=== PATIENT | male | born 1990 | race Caucasian/White ===

== ENCOUNTER 2019-02-07 20:18 | Emergency (ER) | payer MEDICAID ==
[~2019-02-07] VITALS: Ht 162.6 cm; Wt 63.6 kg
[~2019-02-07 20:18] MED LIST: ACET1TAB12 PO; CYCL-1 PO
[2019-02-07 20:29] VITALS: BP 126/81
[2019-02-07] MEDS ORDERED: AMOX-580 PO (21:15)
== END 2019-02-07 21:40 | disposition home or self-care (01) ==
LOC: ER 20:19
DX: J06.9 Acute upper respiratory infection, unspecified (principal); H92.01 Otalgia, right ear; J45.909 Unspecified asthma, uncomplicated; Z79.899 Other long term (current) drug therapy
CPT/HCPCS: 99283

== ENCOUNTER 2019-06-05 10:43 | Emergency (ER) | payer MEDICAID ==
[~2019-06-05] VITALS: Ht 162.6 cm; Wt 54.0 kg
[2019-06-05 10:54] VITALS: BP 129/85
[2019-06-05] MEDS ORDERED: buprenorphine/naloxone 8mg/2mg SL tablet SL STA (12:46)
[2019-06-05] MEDS ORDERED: LORazepam 1 MG tablet PO ONE (12:50)
== END 2019-06-05 14:01 | disposition home or self-care (01) ==
LOC: ER 10:44
DX: F11.23 Opioid dependence with withdrawal (principal); F15.10 Other stimulant abuse, uncomplicated; F50.89 Other specified eating disorder; J45.909 Unspecified asthma, uncomplicated; Z68.20 Body mass index [BMI] 20.0-20.9, adult; Z79.899 Other long term (current) drug therapy
CPT/HCPCS: 99283

== ENCOUNTER 2019-06-18 21:04 | Emergency (ER) | payer MEDICAID ==
[~2019-06-18] VITALS: Ht 162.6 cm; Wt 61.0 kg
[2019-06-18] MEDS ORDERED: ondansetron/PF 4mg/2ml inj IV ONE (21:15)
[2019-06-18] MEDS ORDERED: charcoal/sorbitol 50gm/240ml suspension PO ONE (21:15)
--- NOTE | 2019-06-18 21:24 | NUR ---
contacted posion control. recommended that we monitor for drowsiness, ataxia, N\V, tremors, tachycardia or bradycardia, hypo or hypertension. Observe pt for 6 hrs. pt needs seizure precautions, regular labs with ASA, APAP, UDS - ok to give benzos for agitation.
[2019-06-18 21:53] LABS: BASOPHILS # (AUTO) 0.1 X10'3 (0-0.2); BASOPHILS % (AUTO) 0.8 % (0-1); EOSINOPHILS # (AUTO) 0.1 X10'3 (0-0.9); EOSINOPHILS % (AUTO) 1.3 % (0-6); HEMATOCRIT 42.4 % (42.0-52.0); HEMOGLOBIN 14.4 g/dl (14.0-17.9); LYMPHOCYTES # (AUTO) 3.1 X10'3 (1.1-4.8); LYMPHOCYTES % (AUTO) 44.3 % (21-51); MEAN CORPUSCULAR HEMOGLOBIN 30.1 PG (27.0-31.0); MEAN CORPUSCULAR HGB CONC 33.9 g/dL (33.0-36.5); MEAN CORPUSCULAR VOLUME 88.6 FL (78-98); MEAN PLATELET VOLUME 7.1 FL (7.4-10.4); MONOCYTES # (AUTO) 0.5 X10'3 (0-0.9); NEUTROPHILS # (AUTO) 3.3 X10'3 (1.8-7.7); NEUTROPHILS % (AUTO) 46.6 % (42-75); PLATELET COUNT 324 X10'3 (140-440); RED BLOOD COUNT 4.78 X10'6 (4.70-6.10); RED CELL DISTRIBUTION WIDTH 13.1 % (11.5-14.5)
[2019-06-18 21:59] LABS: CLARITY,URINE CLEAR (Clear); COLOR,URINE YELLOW (Yellow); GLUCOSE, URINE NEGATIVE (Neg); KETONES,URINE NEGATIVE (Neg); LEUKOCYTE ESTERASE ,URINE NEGATIVE (Neg); NITRITES, URINE NEGATIVE (Neg); OCCULT BLOOD,URINE NEGATIVE (Neg); PROTEIN,URINE NEGATIVE (Neg); UROBILINOGEN,URINE 0.2 E.U/dL (0.2-1.0)
[2019-06-18 22:09] LABS: URINE AMPHETAMINE SCREEN NEGATIVE (Neg); URINE BARBITUATE SCREEN NEGATIVE (Neg); URINE BENZODIAZEPINES SCREEN NEGATIVE (Neg); URINE CANNABINOID SCREEN POSITIVE (Neg); URINE COCAINE SCREEN NEGATIVE (Neg); URINE METHADONE SCREEN NEGATIVE (Neg); URINE OPIATE SCREEN NEGATIVE (Neg); URINE PHENCYCLIDINE SCREEN NEGATIVE (Neg)
[2019-06-18 22:10] LABS: UA COLLECTION TYPE VOIDED
[2019-06-18 22:28] LABS: ALANINE AMINOTRANSFERASE 129 U/L (12-78); ALBUMIN 3.7 G/DL (3.4-5.0); ALBUMIN/GLOBULIN RATIO 1.2 (1.1-1.5); ALKALINE PHOSPHATASE 103 IU/L (46-116); ANION GAP 8 (8-16); ASPARTATE AMINO TRANSFERASE 40 U/L (10-37); BILIRUBIN,TOTAL 0.4 MG/DL (0.1-1.0); BLOOD UREA NITROGEN 16 MG/DL (7-18); BUN/CREATININE RATIO 18.4 (5.4-32.0); CALCIUM 8.5 MG/DL (8.5-10.1); CHLORIDE 107 MMOL/L (99-107); CREATININE 0.87 MG/DL (0.60-1.10); GLUCOSE 93 MG/DL (70-104); POTASSIUM 3.6 MMOL/L (3.5-5.1); SODIUM 145 MMOL/L (135-145); TOTAL CARBON DIOXIDE 29.9 MMOL/L (24-32); TOTAL PROTEIN 6.8 G/DL (6.4-8.2); eGFR > 90 ML/MIN
[2019-06-18 22:37] LABS: ETHANOL < 0.010 GM/DL (0.0-0.010)
[2019-06-18 22:38] LABS: ACETAMINOPHEN < 2.0 UG/ML (10-30)
--- NOTE | 2019-06-18 23:10 | NUR ---
Increased BROCK level to 2 r/t 1799 written.
--- NOTE | 2019-06-18 23:11 | NUR ---
biju jurado [phone] contact.
[2019-06-19] MEDS ORDERED: PRAZ1CAP5 PO (01:38)
[2019-06-19] MEDS ORDERED: MIRT45TA83 PO (01:38)
[2019-06-19] MEDS ORDERED: BUPR1FIL3 SL (01:38)
--- NOTE | 2019-06-19 02:07 | NUR ---
Pt is awake and talking to registration.
[2019-06-19] MEDS ORDERED: nicotine 21mg patch - 24 hr TD STA (02:14)
--- NOTE | 2019-06-19 02:14 | NUR ---
He has tears in his eyes that he is on a 1798 "I didn't do it intentionally" He wants to go out for a smoke, told him he couldn't and he opted for a patch.
--- NOTE | 2019-06-19 02:38 | NUR ---
Pt being argumentative with changing into green scrubs.
--- NOTE | 2019-06-19 02:41 | NUR ---
Tech infomed me that the pt pulled out his IV when he was taking off his gown.
--- NOTE | 2019-06-19 02:51 | NUR ---
Pt in new room without incident. Pt currently calm and cooperative. [place] given.
--- NOTE | 2019-06-19 02:51 | NUR ---
pt hugged his gf good bye and walked to overflow with tech and security without incident and threw himself onto the bed with his arms crossed. Warmed blankets applied to him. The gf went home with ALL of his belongings.
[2019-06-19 05:43] VITALS: BP 109/67
--- NOTE | 2019-06-19 06:30 | NUR ---
Patient sleeping supine with arms behind his head. No distress observed. Continue to monitor.
--- NOTE | 2019-06-19 07:50 | NUR ---
Patient ambulatory to BR, steady gait. No distress observed. Continue to monitor.
[2019-06-19] MEDS ORDERED: buprenorphine/naloxone 8MG-2MG SUBlingual film SL SCH (08:00)
--- NOTE | 2019-06-19 09:09 | NUR ---
Eve BARNES with patient.
[2019-06-19] MEDS ORDERED: LAMO150T2 PO (10:13)
[2019-06-19] MEDS ORDERED: prazosin 1mg capsule PO SCH (21:00)
[2019-06-19] MEDS ORDERED: mirtazapine 15mg tablet PO SCH (21:00)
== END 2019-06-19 10:12 | disposition home or self-care (01) ==
LOC: ER 21:04
DX: T43.021A Poisoning by tetracyclic antidepressants, accidental (unintentional), initial encounter (principal); F43.10 Post-traumatic stress disorder, unspecified; F31.9 Bipolar disorder, unspecified; F12.90 Cannabis use, unspecified, uncomplicated; J45.909 Unspecified asthma, uncomplicated; F15.90 Other stimulant use, unspecified, uncomplicated; F11.90 Opioid use, unspecified, uncomplicated; Z79.899 Other long term (current) drug therapy; X83.8XXA Intentional self-harm by other specified means, initial encounter; Y93.89 Activity, other specified; Y92.89 Other specified places as the place of occurrence of the external cause; Y99.8 Other external cause status
CPT/HCPCS: 36415; 80053; 80305; 80320; 80329; 81003; 84443; 85025; 93005; 99284; J2405

== ENCOUNTER 2021-12-23 20:23 | Inpatient (IN) | payer MEDICAID ==
[~2021-12-23] VITALS: Ht 162.6 cm; Wt 69.0 kg
[~2021-12-23 20:23] MED LIST changes: -ACET1TAB12 PO; +BUPR1FIL3 SL; -CYCL-1 PO; +MIRT45TA83 PO; +PRAZ1CAP5 PO
[2021-12-23 20:47] LABS: BASOPHILS # (AUTO) 0.1 X10'3 (0-0.2); BASOPHILS % (AUTO) 0.9 % (0-1); EOSINOPHILS % (AUTO) 0.1 % (0-6); HEMOGLOBIN 14.5 g/dl (14.0-17.9); LYMPHOCYTES # (AUTO) 2.2 X10'3 (1.1-4.8); LYMPHOCYTES % (AUTO) 19.5 % (21-51); MEAN CORPUSCULAR HEMOGLOBIN 29.9 PG (27.0-31.0); MEAN CORPUSCULAR HGB CONC 34.4 g/dL (33.0-36.5); MEAN CORPUSCULAR VOLUME 86.8 FL (78-98); MEAN PLATELET VOLUME 7.5 FL (7.4-10.4); MONOCYTES # (AUTO) 0.6 X10'3 (0-0.9); MONOCYTES % (AUTO) 5.8 % (2-12); NEUTROPHILS # (AUTO) 8.3 X10'3 (1.8-7.7); NEUTROPHILS % (AUTO) 73.7 % (42-75); PLATELET COUNT 420 X10'3 (140-440); RED BLOOD COUNT 4.84 X10'6 (4.70-6.10); RED CELL DISTRIBUTION WIDTH 12.5 % (11.5-14.5); WHITE BLOOD COUNT 11.2 X10'3 (4.5-11.0)
[2021-12-23] MEDS ORDERED: diphenhydrAMINE 50 mg/ml inj IM ONE ×2 (20:50→22:40)
[2021-12-23] MEDS ORDERED: LORazepam 2 mg/ml vial IM ONE ×2 (20:50→22:40)
[2021-12-23 21:12] LABS: ACETAMINOPHEN < 2.0 UG/ML (10-30); ALANINE AMINOTRANSFERASE 73 U/L (12-78); ALBUMIN 4.7 G/DL (3.4-5.0); ALBUMIN/GLOBULIN RATIO 1.5 (1.1-1.5); ALKALINE PHOSPHATASE 66 IU/L (46-116); ANION GAP 19 (8-16); ASPARTATE AMINO TRANSFERASE 53 U/L (10-37); BILIRUBIN,TOTAL 1.7 MG/DL (0.1-1.0); BLOOD UREA NITROGEN 17 MG/DL (7-18); BUN/CREATININE RATIO 17.2 (5.4-32.0); CALCIUM 9.8 MG/DL (8.5-10.1); CHLORIDE 98 MMOL/L (99-107); CREATININE 0.99 MG/DL (0.60-1.10); ETHANOL < 0.010 GM/DL (0.0-0.010); GLUCOSE 103 MG/DL (70-104); POTASSIUM 4.4 MMOL/L (3.5-5.1); SODIUM 137 MMOL/L (135-145); TOTAL CARBON DIOXIDE 20.3 MMOL/L (24-32); TOTAL PROTEIN 7.8 G/DL (6.4-8.2); eGFR 88 ML/MIN
[2021-12-23] MEDS ORDERED: OLANZapine **IM** 10 mg inj. IM ONE (22:40)
--- NOTE | 2021-12-23 23:33 | NUR ---
Patient arrived on the unit in no obviious distress. No physical complaint made. Breathing spontanously on rooom air. Patient is bizziarre, he is unable to states why is he here. Patient is anxious and agitated. Patient denies having any suicidal / homicidal ideation.
--- NOTE | 2021-12-24 01:53 | NUR ---
Patient asleep but easily arouse. No obvious distress noted. Observation ongoing.
--- NOTE | 2021-12-24 05:15 | NUR ---
Patient asleep but easily arouse. No obvious distress noted. Observation ongoing.
--- NOTE | 2021-12-24 07:00 | NUR ---
Pt appears to be sleeping, no restless movements. Respirations even and unlabored.
--- NOTE | 2021-12-24 07:55 | NUR ---
Patinet breakfast tray placed at bedside.
--- NOTE | 2021-12-24 09:00 | NUR ---
Patient appears to be sleeping, no restless movements. Respirations even and unlabored.
--- NOTE | 2021-12-24 09:39 | NUR ---
Pt woke stating "I need my bag of cloths." "I need to call my mom, I missed an appointment." Explained to pt he was on a hold ane we still needed a urine sample. Phone was provided to patient. Addendum: 12/24/21 at 0944 by FRANCISCO Pt is calm
--- NOTE | 2021-12-24 11:00 | NUR ---
Pt appears to be sleeping, no restless movements. Attempted to wake pt for urine sample, pt didn't wake when his name was called. Respirations even and unlabored.
--- NOTE | 2021-12-24 12:10 | NUR ---
Woke patient for lunch. Pt presents sedated and required his name to be called a couple of times. Urine sample obtained. Pt remains calm.
--- NOTE | 2021-12-24 12:15 | NUR ---
URINE SAMPLE TO THE LAB.
[2021-12-24 12:31] LABS: CLARITY,URINE CLEAR (Clear); COLOR,URINE YELLOW (Yellow); GLUCOSE, URINE NEGATIVE (Neg); KETONES,URINE 40 mg/dl (Neg); LEUKOCYTE ESTERASE ,URINE NEGATIVE (Neg); NITRITES, URINE NEGATIVE (Neg); OCCULT BLOOD,URINE NEGATIVE (Neg); PROTEIN,URINE NEGATIVE (Neg); UROBILINOGEN,URINE 0.2 E.U/dL (0.2-1.0)
[2021-12-24 12:36] LABS: UA COLLECTION TYPE VOIDED
[2021-12-24 12:49] LABS: URINE AMPHETAMINE SCREEN POSITIVE (Neg); URINE BARBITUATE SCREEN NEGATIVE (Neg); URINE BENZODIAZEPINES SCREEN NEGATIVE (Neg); URINE CANNABINOID SCREEN POSITIVE (Neg); URINE COCAINE SCREEN NEGATIVE (Neg); URINE METHADONE SCREEN POSITIVE (Neg); URINE OPIATE SCREEN NEGATIVE (Neg); URINE PHENCYCLIDINE SCREEN NEGATIVE (Neg)
[2021-12-24] MEDS ORDERED: ESCI-8 PO (12:54)
[2021-12-24] MEDS ORDERED: LISI10TA27 PO (12:54)
[2021-12-24] MEDS ORDERED: MIRT45TA79 PO (12:54)
--- NOTE | 2021-12-24 14:19 | NUR ---
Pt resting quietly, no signs/symptoms of distress.
--- NOTE | 2021-12-24 15:10 | NUR ---
[facility] at bedside. Pt acting appropriate.
--- NOTE | 2021-12-24 15:35 | NUR ---
[facility] placing 5150 hold on patient.
--- NOTE | 2021-12-24 20:30 | NUR ---
Patient was received at 1820. Patient was observed sleeping. When nurse attempted to introduce themselves to patient. Patient didnt respond and continued to sleep.
--- NOTE | 2021-12-24 20:33 | NUR ---
Patient continues to sleep. Patient has yet to awake or get up to use the bathroom.
--- NOTE | 2021-12-25 00:36 | NUR ---
Patient currently sleeping. Patient temporarily woke up due to neighbor continuing to yell and argue with staff. Patients mother called in stating she has been looking for patient for multiple days. [place]. Mother has no idea how he made it all the way to [facility]. Mother has driven up and will be here at 0800 to see patient. Patient has been [facility]. Patient will be getting picked up at 1000, allowing time for mother to come see patient.
--- NOTE | 2021-12-25 02:31 | NUR ---
Patient is awake asking for methadone. Patient states he is coming down and needs his prescription. Patient currently doesnt have any medications or orders. Nurse is going to ask doctor for anything that can help him stay calm.
[2021-12-25] MEDS ORDERED: LORazepam 1 MG tablet PO ONE (04:00)
[2021-12-25] MEDS ORDERED: methadone 10mg tablet PO ONE ×2 (04:05→07:05)
--- NOTE | 2021-12-25 04:17 | NUR ---
Doctor ordered 1 mg ativan and 40mg methadone. Nurse gave pt the methadone 40mg at 0415. Patient is acting agitated and anxious. Patient continues to get up and pace asking for medications. Nurse withheld ativan due to concern of sedation. Patient has layed down since getting methadone.
--- NOTE | 2021-12-25 06:03 | NUR ---
Patient pacing around unit again. Patient asked nurse for a nicotine patch since he is used to smoking a pack a day. Nurse asked doctor for order, awaiting approval.
[2021-12-25] MEDS ORDERED: METH-806 PO (06:13)
--- NOTE | 2021-12-25 07:00 | NUR ---
Received pt lying in bed, now pt is pacing around bed area stating he needs more methadone. notified.
[2021-12-25] MEDS: lisinopril 10 MG tablet PO SCH (07:42)
[2021-12-25] MEDS: ESCITALOPRAM OXALATE 5 MG TABLET PO SCH (07:42)
[2021-12-25] MEDS ORDERED: LORazepam 2 mg/ml vial IM ONE ×2 (08:10→19:40)
[2021-12-25] MEDS ORDERED: diphenhydrAMINE 50 mg/ml inj IM ONE (08:10)
[2021-12-25] MEDS ORDERED: haloperidol lactate 5mg/ml inj IM ONE ×2 (08:10→19:40)
[2021-12-25] MEDS: OLANZAPINE 5 MG TABLET PO SCH ×2 (08:29→19:51)
[2021-12-25] MEDS: nicotine 21mg patch - 24 hr TD SCH (08:32)
--- NOTE | 2021-12-25 09:00 | NUR ---
Pt mom (Lilibeth: ) visited with pt's fiance at 0800. Pt became upset because he couldn't go out and smoke and so he walked off the unit and out of the door to the hospital. This RN followed and was able to talk him in to coming back, then security showed up and pt was given IM meds per MD order. Pt became cooperative and polite. Pt appears confused and disorganized to situation.
--- NOTE | 2021-12-25 11:00 | NUR ---
Pt was bent over bed for a while, stating he was praying. RN asked if he would like to get into bed after witness pt legs buckling a bit. Pt agreed saying he was starting to fall asleep. Pt currently sleeping in bed.
--- NOTE | 2021-12-25 13:03 | NUR ---
Relieved Ilya for break. Pt asleep on his back. RR even and unlabored.
--- NOTE | 2021-12-25 14:02 | NUR ---
Pt continues to sleep. RR even and unlabored.
--- NOTE | 2021-12-25 14:34 | NUR ---
Pt continues to sleep. RR even and unlabored.
--- NOTE | 2021-12-25 15:00 | NUR ---
Pt remains asleep at this time. Pt did not awake for lunch.
--- NOTE | 2021-12-25 15:53 | NUR ---
Sister: Rhea: , claims to be Power of Round Up Ring Hand
--- NOTE | 2021-12-25 17:00 | NUR ---
Pt continues to sleep without complaints.
--- NOTE | 2021-12-25 18:38 | NUR ---
Patient received on the unit in no obvious distress. No physical complaint made. Breathing spontanously on room air. Patient denies having any suicidal/ homicidal ideation at this time.
[2021-12-25] MEDS ORDERED: diphenhydrAMINE 50 mg/ml inj IM STA (19:38)
[2021-12-25] MEDS ORDERED: diphenhydrAMINE 50 mg/ml inj ONE (19:40)
[2021-12-25] MEDS ORDERED: haloperidol lactate 5mg/ml inj ONE (19:40)
[2021-12-25] MEDS ORDERED: LORazepam 2 mg/ml vial ONE (19:41)
[2021-12-25] MEDS: mirtazapine 15mg tablet PO SCH (19:51)
[2021-12-25] MEDS ORDERED: acetaminophen 325mg tablet PO PRN ×2 (19:55)
[2021-12-25] MEDS ORDERED: magnesium hydroxide 30ml (MOM) UD suspension PO PRN (19:55)
[2021-12-25 20:00] VITALS: BP 117/73
--- NOTE | 2021-12-25 22:34 | NUR ---
Admit Note: Huan Thomas 31 yr old male brought to [facility] on 12/23/21 by law enforcement for bizarre behavior and placed in overflow. Pt has a history of bipolar disorder and anxiety. Patient found standing in middle of street shaking and crying. Pt was attempting to enter strangers homes telling them it was his. Pt also reported stating that the homes were haunted. Pt accepted to [facility] unit on 12/25/21 at 1911 and placed on a 5150 GD. Pt immediately agitated because he couldn't obtain his belongings from [employer]. During safety search [employer] allegedly found 2 small bags of Methamphetamine and a cigarette cellophane full of marijuana. Security was called and patient was able to calm down. Pt took evening meds and went to sleep. Unable to wake pt up to sign admit papers and do 2 RN skin check that requires a photograph of what appears to be a bite nazario to left buttocks. Patient reported to law enfocement that he was evicted from residence on
--- NOTE | 2021-12-26 05:25 | NUR ---
Needs suicide assessment.
[2021-12-26] MEDS: ESCITALOPRAM OXALATE 5 MG TABLET PO SCH (08:18)
[2021-12-26] MEDS: OLANZAPINE 5 MG TABLET PO SCH ×2 (08:19→21:13)
[2021-12-26] MEDS: lisinopril 10 MG tablet PO SCH (08:19)
[2021-12-26] MEDS: methadone 10mg tablet PO SCH (08:19)
[2021-12-26] MEDS: nicotine 21mg patch - 24 hr TD SCH (08:20)
[2021-12-26 08:57] VITALS: BP 117/60
[2021-12-26] MEDS ORDERED: LORazepam 1 MG tablet PO ONE ×2 (11:45→19:50)
--- NOTE | 2021-12-26 11:50 | NUR ---
Staff heard alarm from [facility] dining room at approx 1145, security was notified immediately. Staff performed room to room search and confirmed Huan was unaccounted for. Staff called [employer], nursing building cleaning supervisor, and outpatient program coordinator. Pt's next of kin was also notified. Pt. had exhibited emotional and agitated mental states prior to elopement. Museum Librarian had spoke to provider and received a one [facility] and was in the medroom retrieving the order at time of elopement.
--- NOTE | 2021-12-26 11:54 | NUR ---
Pt. eloped out dining room door at aprox 1145. Security was called by staff nurse.
--- NOTE | 2021-12-26 11:57 | NUR ---
At approx 1150 security called the unit to notify us of pt. was seen exiting the hospital near the pharmacy.
--- NOTE | 2021-12-26 17:11 | NUR ---
Nursing Progress Note: Huan Legal hold: 5150 Client on involuntary status for GD Report received from RN with use of SBAR. Why are they here: Pt. brought in to [facility] by Fazal KIM after being called for going house to house attempting to enter. Assessment What has happened this shift: Pt. received sleeping in his room, woke to receive his medication, and 1:1 assessment completed at the bedside; pt. denies SI, HI, A/VH, and reports I dont know why Im here and reports wanting to discharge home. Pt. presents as disoriented, and guarded this morning. Pt. ate breakfast in the dining room this morning, often isolating from others. Pt. presents as heavily medicated after administration of Methadone often nodding off and struggling to sit upright at times. Later in the morning fiction and nonfiction writer prose could hear pt. yelling profanities while on the phone; no threats heard, however pt. was agitated, and emotional. I contacted provider to obtain a PRN PO med as no PO was available N.O order received and awaiting for pharmacy authorization, when an alarm was heard at the community room door. (Please see elopement note) Pt. was picked up by Collections after calling his mother for a ride. Pt. was returned to hospital, no signs of injury, and skin assessment completed. Pt presented as disoriented, and emotionally labile. PRN Ativan given. S/I, H/I: Denies A/VH: Denies. Sleep: None ADL's: Independent Group attendance: NA Were meds taken: Denies. None observed. Mental Status Exam Appearance: Disheveled, unkempt hair and spears, dressed in personal attire. Eye contact: Fair Behavior: Eloped, Emotional Speech: Pressured Mood: Depressed. Affect: Flat Thought process: Disorganized Thought Content: Discharge focused. Cognition: A&O x3 Insight: Fair Judgment: Fair Interventions PRN's used: Ativan Therapeutic interventions: Maintained a safe and supportive environment, ensured contract for safety, provided clear and simple instructions, provided direction and encouragement regarding performance of ADLs, and maintained Q15 minute safety checks. Restraints/seclusion/emergency medication: NA Justification of Continued Inpatient Treatment: Requires interruption of current crisis in a safe and therapeutic environment.
[2021-12-26 19:57] VITALS: BP 129/100
[2021-12-26] MEDS: mirtazapine 15mg tablet PO SCH (21:12)
[2021-12-26] MEDS: NICOTINE POLACRILEX 2 MG LOZENGE BC PRN (21:33)
--- NOTE | 2021-12-26 23:26 | NUR ---
Nursing Progress Note: Huan Legal hold: 5150 Client on involuntary status for GD Report received from RN with use of SBAR. Why are they here: Pt. brought in to [facility] by Fazal KIM after being called for going house to house attempting to enter. Assessment What has happened this shift: Pt in room sleeping at shift change. Woke pt up for suicide evaluation. 1:1, Pt admits to hearing voices and being suicidal with no current plan. Pt also could not remember what his prior living arrangements were or why he was here. After asking the pt why he left pt stated that he didn't want to be here and that he had a good time. Pt admitted to using meth while on elopement. Pt BP 129/100. Mathieu TERRY notified of meth use and ordered 1mg Ativan PO.Pt took evening meds w/o complications Pt went to sleep shortly after med pass. S/I, H/I: Denies A/VH: Denies. Sleep: See sleep hours ADL's: Independent Group attendance: No group in the evenings Were meds taken: Denies. None observed. Mental Status Exam Appearance: Disheveled, unkempt hair and spears, dressed in personal attire. Eye contact: Fair Behavior: tired, coming down off drugs Speech: Pressured Mood: tired Affect: Flat Thought process: Disorganized Thought Content: sleep Cognition: A&O x3 Insight: Fair Judgment: Fair Interventions PRN's used: Ativan 1mg Therapeutic interventions: Maintained a safe and supportive environment, ensured contract for safety, provided clear and simple instructions, provided direction and encouragement regarding performance of ADLs, and maintained Q15 minute safety checks. Restraints/seclusion/emergency medication: NA Justification of Continued Inpatient Treatment: Requires interruption of current crisis in a safe and therapeutic environment.
--- NOTE | 2021-12-27 05:41 | NUR ---
Patient in room unable to quit moving around. Pt requested something to help calm him down. Called Norberto TERRY for anxiety for patient. Ordered 1mg Ativan TID PRN.
[2021-12-27] MEDS: LORazepam 1 MG tablet PO PRN ×2 (05:49→07:29)
[2021-12-27] MEDS: ESCITALOPRAM OXALATE 5 MG TABLET PO SCH (07:29)
[2021-12-27] MEDS: methadone 10mg tablet PO SCH (07:29)
[2021-12-27] MEDS: OLANZAPINE 5 MG TABLET PO SCH ×2 (07:29→20:27)
[2021-12-27] MEDS: nicotine 21mg patch - 24 hr TD SCH (07:29)
[2021-12-27 08:00] VITALS: BP 134/89
[2021-12-27] MEDS: lisinopril 10 MG tablet PO SCH (08:00)
[2021-12-27] MEDS ORDERED: diphenhydrAMINE 50 mg/ml inj ONE ×2 (11:32→14:30)
[2021-12-27] MEDS ORDERED: LORazepam 2 mg/ml vial ONE ×2 (11:33→14:31)
[2021-12-27] MEDS ORDERED: haloperidol lactate 5mg/ml inj ONE ×2 (11:34→14:30)
--- NOTE | 2021-12-27 16:52 | NUR ---
Nursing Progress Note: Huan Legal hold: 5150 Client on involuntary status for GD Report received from RN with use of SBAR. Why are they here: Pt. brought in to [facility] by Fazal KIM after being called for going house to house attempting to enter. Assessment What has happened this shift: Pt. received on LOS, and sleeping in his room, woke to receive his medication, and 1:1 assessment completed at the bedside; pt. denies SI, HI, and endorses stating yea so what, and denies VH. Pt. reports he was admitted for no fuing reason and his plans for discharge are to go back to my fucking life Pt. presents as agitated this morning, PRN Ativan given. Pt. ate breakfast in his room, later the morning he was observed running by fiction writer evaristolling wheres the [address] out of here fiction writer and staff escorted pt. to his room, he continues to yell obscenities and started beating on the guardado and windows for his safety and the safety of staff security was called, and he was given IM Ativan, Benadryl, and Haldol. Pt. received IM injections. Pt. continued to escalate physically and was place in seclusion room for his safety. Denial of rights followed and less then one hour he was removed. Pt. ate lunch in his room and was found to be in a calmer state. Later in the afternoon pt. received a phone call from a girlfriend requesting to speak to him re his daughter and needing to access an EBT card; the pt. quickly became enraged and attempted to elope. Security was called, pt. returned to his room punching the metal paper towel dispenser extremely hard, and yelling Im gonna get the fk out of here and punching guardado, pt. was yelling give me the fuing medicine I need the Meth pt. received another dose of Ativan, Haldol, and Benadryl for his safety. Provider notified of possible injury to Rt. Hand. Pt. continues on monitored r/t medication administration and remains on LOS. S/I, H/I: Denies A/VH: Denies. Sleep: None ADL's: Independent Group attendance: NA Were meds taken: Denies. None observed. Mental Status Exam Appearance: Disheveled, unkempt hair and spears, dressed in personal attire. Eye contact: Fair Behavior: Attempting to elope, agitated, anxiety, destructive self-inflicting injuries to hands, and head Speech: Pressured, yelling Mood: Elevated Affect: Flat Thought process: Obsessive Thought Content: Focused on elopement Cognition: A&O x3 Insight: Fair Judgment: Fair Interventions PRN's used: Ativan PO, IM Ativan X2, Benadryl IM X2, Haldol X2 Therapeutic interventions: Maintained a safe and supportive environment, ensured contract for safety, provided clear and simple instructions, provided direction and encouragement regarding performance of ADLs, and maintained Q15 minute safety checks. Restraints/seclusion/emergency medication: Seclusion Room Justification of Continued Inpatient Treatment: Requires interruption of current crisis in a safe and therapeutic environment.
[2021-12-27] MEDS: mirtazapine 15mg tablet PO SCH (20:27)
--- NOTE | 2021-12-28 02:40 | NUR ---
Nursing Progress Note: Huan Legal hold: 5150 Client on involuntary status for GD Report received from MARY CARMEN Royal with use of SBAR. Why are they here: Pt. brought [facility] to [facility] by Fazal KIM after being called for going house to house attempting to enter. Assessment What has happened this shift:Pt on LOS for elopement. Pt sleeping at shift change. Pt woke up and a snack was brought in and a decaffeinated coffee. Pt was very soft spoken and polite. Pt fell asleep until evening med pass, pt took meds w/o complications and asked for some chips. Pt was appropriate in conversation. Pt denies A/V H . Pt fell asleep after conversation. S/I, H/I: Denies A/VH: Denies. Sleep: None ADL's: Independent Group attendance:No group in the evenings Were meds taken: yes Mental Status Exam Appearance: Disheveled, unkempt hair and spears, dressed in personal attire. Eye contact: Fair Behavior: tired Speech: soft spoken, appropriate Mood:tired Affect: Flat Thought process: drowsy, sleep Thought Content:meeting needs Cognition: A&O x3 Insight: Fair Judgment: Fair Interventions PRN's used: none Therapeutic interventions: Maintained a safe and supportive environment, ensured contract for safety, provided clear and simple instructions, provided direction and encouragement regarding performance of ADLs, and maintained Q15 minute safety checks. Restraints/seclusion/emergency medication: Seclusion Room Justification of Continued Inpatient Treatment: Requires interruption of current crisis in a safe and therapeutic environment.
[2021-12-28 08:01] VITALS: BP 124/80
[2021-12-28] MEDS: nicotine 21mg patch - 24 hr TD SCH (08:43)
[2021-12-28] MEDS: methadone 10mg tablet PO SCH (08:43)
[2021-12-28] MEDS: ESCITALOPRAM OXALATE 5 MG TABLET PO SCH (08:43)
[2021-12-28] MEDS: OLANZAPINE 5 MG TABLET PO SCH ×2 (08:44→20:19)
[2021-12-28] MEDS: LORazepam 1 MG tablet PO PRN (08:44)
[2021-12-28] MEDS: lisinopril 10 MG tablet PO SCH (08:44)
[2021-12-28] MEDS ORDERED: hydrOXYzine 25 MG tablet PO ONE (13:25)
[2021-12-28] MEDS ORDERED: LORazepam 2 mg/ml vial ONE (14:02)
[2021-12-28] MEDS ORDERED: haloperidol lactate 5mg/ml inj ONE (14:02)
[2021-12-28] MEDS ORDERED: diphenhydrAMINE 50 mg/ml inj ONE ×2 (14:02→14:04)
--- NOTE | 2021-12-28 17:59 | NUR ---
Nursing Progress Note: Huan Legal hold: 5150 Client on involuntary status for GD Report received from MARY CARMEN Salas with use of SBAR. Why are they here: Pt. brought in to [facility] by Fazal KIM after being called for going house to house attempting to enter. Assessment What has happened this shift: Patient observed sleeping in bed at change of shift. Patient continues on LOS observation for previous elopement. He was awoken for breakfast which patient declined to eat in the community room with peers. Patient endorsed that he doesnt want to be around other patients. He was provided with a breakfast tray to his room. He was compliant with scheduled medication and 1:1 assessment. Patient endorsed feelings of anxiety and was given PRN Ativan at 0844. Patient denies SI/HI, AH or VH. Does not appear to be responding to internal stimuli. Patient presents as fatigued, noted sleeping most of the morning. Patient noted perseverating on leaving the facility. He requested something for anxiety and was given a one-time dose of PO Hydroxyzine 50mg at 1332. Shortly after, patient was observed anxiously verbalizing to staff that we cant keep him in here! Patient noted making delusional statements of getting lost in the system and being locked up forever. Patient became irate after being notified that MD extended patients MH hold. He was noted aggressively posturing and clenching his fists toward staff, then proceeding to scream at the top of his lungs in his room. Security was called to the unit and one time dose of IM Ativan 2mg, Haldol 10mg, and Benadryl 50mg given at 1402 per MD order. Patient noted sleeping for approximately 3 hours until dinner arrived. Patient continues to present as impulsive, labile, irritable and aggressive on this shift. He was self-isolative to his room the majority of the shift, refusing to join in the community room for meals. S/I, H/I: Denies A/VH: Denies. Does not appear to be responding to IS. Sleep: Pt slept 9.5 hours last night per NOC shift. Napped on and off throughout the day. ADL's: Independent Group attendance: No Were meds taken: Yes Any med S/E: Denies. None observed. Mental Status Exam Appearance: Disheveled, unkempt hair and spears, wearing green unit scrubs. Eye contact: Fair Behavior: Impulsive, labile, irritable, aggressive Speech: Clear, WNL Mood: Tired, irritable Affect: Flat Thought process: Linear, circumstantial Thought Content: Perseveration on discharge Cognition: A&O x3 Insight: Fair Judgment: Fair Interventions PRN's used: Ativan, Atarax Therapeutic interventions: Maintained a safe and supportive environment, ensured contract for safety, provided clear and simple instructions, provided direction and encouragement regarding performance of ADLs, and maintained Q15 minute safety checks. Restraints/seclusion/emergency medication: One time dose of IM Ativan 2mg, Haldol 10mg, and Benadryl 50mg Justification of Continued Inpatient Treatment: Requires interruption of current crisis in a safe and therapeutic environment.
[2021-12-28] MEDS: NICOTINE POLACRILEX 2 MG LOZENGE BC PRN (18:34)
[2021-12-28] MEDS: mirtazapine 15mg tablet PO SCH (20:19)
--- NOTE | 2021-12-29 01:18 | NUR ---
Nursing Progress Note: Huan Legal hold: 5150 Client on involuntary status for GD Report received from MARY CARMEN Royal with use of SBAR. Why are they here: Pt. brought in to [facility] by Fazal KIM after being called for going house to house attempting to enter. Assessment What has happened this shift: Pt sitting up in bed at shift change. Pt was appropriate and polite upon questioning. 1:1 Pt said he had a okay day, not to great, and that he stayed in his room all day. Pt denies A/V H S/I H/I. Pt asked for a nicotine lozenge. pt was brought a snack at snack time. Pt was asleep in bed and said , Thank you." Pt took evening medication w/o complications and went to sleep directly after. S/I, H/I: Denies A/VH: Denies. Sleep: See sleep hours ADL's: Independent Group attendance: No Group in the evenings Were meds taken: Yes Any med S/E: Denies. None observed. Mental Status Exam Appearance: Disheveled, unkempt hair and spears, wearing green unit scrubs. Eye contact: good Behavior: tired Speech: Clear, WNL Mood: Tired, drowsy Affect: Flat Thought process: Linear Thought Content: meeting needs Cognition: A&O x3 Insight: Fair Judgment: Fair Interventions PRN's used: nicotine lozenge Therapeutic interventions: Maintained a safe and supportive environment, ensured contract for safety, provided clear and simple instructions, provided direction and encouragement regarding performance of ADLs, and maintained Q15 minute safety checks. Restraints/seclusion/emergency medication: One time dose of IM Ativan 2mg, Haldol 10mg, and Benadryl 50mg Justification of Continued Inpatient Treatment: Requires interruption of current crisis in a safe and therapeutic environment.
[2021-12-29] MEDS: methadone 10mg tablet PO SCH (07:40)
[2021-12-29] MEDS: lisinopril 10 MG tablet PO SCH (07:41)
[2021-12-29] MEDS: OLANZAPINE 5 MG TABLET PO SCH ×2 (07:41→20:31)
[2021-12-29] MEDS: ESCITALOPRAM OXALATE 5 MG TABLET PO SCH (07:42)
[2021-12-29] MEDS: nicotine 21mg patch - 24 hr TD SCH (07:42)
[2021-12-29] MEDS: LORazepam 1 MG tablet PO PRN (07:48)
[2021-12-29 08:00] VITALS: BP 119/84
--- NOTE | 2021-12-29 10:01 | NUR ---
Initial: Pt admit dx psychosis, MDD, PTSD, and chronic pain syndrome w/ hx illicit drug abuse per EMR. Pt currently on regular diet w/ mostly 100% PO intake of meals and meeting nutrient needs. LBM 12/28, bowel care available PRN per EMR. No nutrition intervention implemented at this time. Will continue to follow. Recommendations: 1. Continue regular diet 2. Bowel care per rx 3. Weekly scaled wts Addendum: 12/29/21 at 1002 by Imelda Horowitz Digital Advisor RD Amended: Links added. Addendum: 12/29/21 at [address] I have reviewed and agree with note by Digital AdvisorNatalie Min RD
--- NOTE | 2021-12-29 11:15 | NUR ---
Met with Huan to attempt to complete psychosocial assessment. He was somewhat sedated. He was emotionally labile and tearful at times. He was having difficulty answering questions and with his recall. He did sign release for his fiance, Ronit, sister, Zhen, and mom, Lilibeth. Attempted to call Ronit at ph# [phone]. Huan was not sure if this was the correct #. Also, left message with Zhen requesting a call back. DELIA Miller
[2021-12-29] MEDS: hydrOXYzine 25 MG tablet PO PRN (13:55)
[2021-12-29] MEDS ORDERED: haloperidol lactate 5mg/ml inj ONE ×2 (14:27→14:28)
[2021-12-29] MEDS ORDERED: LORazepam 2 mg/ml vial ONE (14:27)
[2021-12-29] MEDS ORDERED: diphenhydrAMINE 50 mg/ml inj ONE (14:28)
--- NOTE | 2021-12-29 14:40 | NUR ---
Spoke with Huan's sister, Rhea (ph# [phone]), who reported she does not think Huan is able to return to the house he was living in. She reported Ronit (adrien) had locked him out of the house and out of his car. She provided Ronit's ph#. Attempted to reach Ronit (ph# [phone]) and left a message requesting a call back. DELIA Miller
--- NOTE | 2021-12-29 15:13 | NUR ---
Behavior: Pt punching wall and kicking trash can in room demanding "3 green pills". Nurse gets orders from MARA Thornton to give Hydroxizine PO "green pills". Explained to pt he needs to have couple days of good behavior. PT states he has had good behavior every day he has been here. Pt states at home he just does Meth and tinkers all day and he needs to leave. Pt then puts on 2 pairs of socks and 2 sets of pants and sitter states he may be attempting to leave. Pt then heads for the double doors and sets off the alarm. Due to pts recent aggression and punching guardado, pt taken down to the ground. Pt resisted for a few seconds but then stops and just questions everything all over again; why am I here, Why cant I leave? I feel like Im possessed". Paulino martinez team arrived and pt placed in restraints and medicated.
--- NOTE | 2021-12-29 17:32 | NUR ---
Nursing Progress Note: Huan Legal hold: 5150 Client on involuntary status for GD Report received from MARY CARMEN Salas with use of SBAR. Why are they here: Pt. brought in to [facility] by Fazal KIM after being called for going house to house attempting to enter. Assessment What has happened this shift: Patient was asleep at change of shift and up for breakfast. Patient got anxious in the morning and RN gave patient his regular meds along with his Ativan. Patient did calm down. Then in the early afternoon and RN got an order for Atarax as patient wanted the 2 green pills he had gotten sometime in the past. Patient took the meds and was good for a while. Then patient punched the wall and attempted to run out the door. Patient was taken down and given a B52. Patient was placed in Seclusion and restraints placed for a short time. Patient is now sleeping in the Seclusion room with a warm blanket and a pillow. S/I, H/I: Denies A/VH: Denies. Sleep: slept in the afternoon ADL's: Independent Group attendance: No Were meds taken: Yes Any med S/E: Denies. None observed. Mental Status Exam Appearance: Disheveled, unkempt hair and spears, wearing green unit scrubs. Eye contact: Fair Behavior: Labile, irritable, aggressive Speech: Clear, WNL Mood: Angry, calm Affect: Flat Thought process: Linear, circumstantial Thought Content: Going back home. Cognition: A&O x3 Insight: Fair Judgment: Fair Interventions PRN's used: Ativan, Atarax, Haldol Therapeutic interventions: Maintained a safe and supportive environment, ensured contract for safety, provided clear and simple instructions, provided direction and encouragement regarding performance of ADLs, and maintained Q15 minute safety checks. Restraints/seclusion/emergency medication: One time dose of IM Ativan 2mg, Haldol 10mg and Benadryl 50 mg. Restraints and Seclusion Justification of Continued Inpatient Treatment: Requires interruption of current crisis in a safe and therapeutic environment.
[2021-12-29 20:00] VITALS: BP 98/57
[2021-12-29] MEDS: mirtazapine 15mg tablet PO SCH (20:31)
[2021-12-29 21:09] VITALS: BP 98/57
--- NOTE | 2021-12-30 03:12 | NUR ---
Nursing Progress Note: Legal hold: 5150 Client on involuntary status for GD Report received from MARY CARMEN Royal with use of SBAR. Why are they here: Pt. brought in to [facility] by Fazal KIM after being called for going house to house attempting to enter. Assessment What has happened this shift: Patient was found in observation room sleeping at beginning of shift. Patient was eventually moved back into his own room. Patient self isolated and slept all shift. Patient woke up for nurse to give medications and went back to bed. Patient was pleasant and cooperative. S/I, H/I: Denies A/VH: Denies. Sleep:See sleep assessment ADL's: Independent Group attendance: No Were meds taken: Yes Any med S/E: Denies. None observed. Mental Status Exam Appearance: Disheveled, wearing green unit scrubs. Eye contact: Fair Behavior: Labile, irritable Speech: Clear, WNL Mood: calm Affect: Flat Thought process: Linear, circumstantial Thought Content: Going back home. Cognition: A&O x3 Insight: Fair Judgment: Fair Interventions PRN's used: Therapeutic interventions: Maintained a safe and supportive environment, ensured contract for safety, provided clear and simple instructions, provided direction and encouragement regarding performance of ADLs, and maintained Q15 minute safety checks. Restraints/seclusion/emergency medication: One time dose of IM Ativan 2mg, Haldol 10mg and Benadryl 50 mg. Restraints and Seclusion Justification of Continued Inpatient Treatment: Requires interruption of current crisis in a safe and therapeutic environment.
[2021-12-30 07:35] VITALS: BP 123/62
[2021-12-30] MEDS: OLANZAPINE 5 MG TABLET PO SCH ×3 (08:22→20:08)
[2021-12-30] MEDS: LORazepam 1 MG tablet PO PRN (08:22)
[2021-12-30] MEDS: ESCITALOPRAM OXALATE 5 MG TABLET PO SCH (08:22)
[2021-12-30] MEDS: methadone 10mg tablet PO SCH (08:22)
[2021-12-30] MEDS: nicotine 21mg patch - 24 hr TD SCH (08:23)
[2021-12-30] MEDS: lisinopril 10 MG tablet PO SCH (08:23)
[2021-12-30] MEDS: hydrOXYzine 25 MG tablet PO PRN (11:37)
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
[2021-12-30] MEDS: NICOTINE POLACRILEX 2 MG LOZENGE BC PRN ×3 (13:29→19:05)
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
[2021-12-30 19:48] VITALS: BP 116/64
[2021-12-30] MEDS: mirtazapine 15mg tablet PO SCH (20:08)
--- NOTE | 2021-12-31 01:56 | NUR ---
Nursing Progress Note: Huan Legal hold: 5250 Client on involuntary status for GD Report received from MARY CARMEN Ng with use of SBAR. Why are they here: Pt. brought in to [facility] by Fazal KIM after being called for going house to house attempting to enter. Assessment What has happened this shift: Patient was observed sleeping at beginning of shift. Patient woke when nurse ruben in to go over evening medications. Patient was polite and cooperative. Patient got up and started walking and socializing with his [place] tech. Patient got up and participated in snack time. Patient took all night medications including prn nicotine lozenge. Patient went to bed after snack. S/I, H/I: Denies A/VH: Denies. Does not appear to be responding to IS. Sleep: See sleep assessment ADL's: Independent Group attendance: No Were meds taken: Yes Any med S/E: Denies. None observed. Mental Status Exam Appearance: Disheveled, unkempt hair and spears, wearing green unit scrubs. Eye contact: Fair Behavior: Labile, irritable Speech: Clear, WNL Mood: Angry, calm Affect: Flat Thought process: Linear, circumstantial Thought Content: Perseveration on discharge. Feels that he does not need to be here. Cognition: A&O x3 Insight: Fair Judgment: Fair Interventions PRN's used": Nicotine lozenge Therapeutic interventions: Maintained a safe and supportive environment, ensured contract for safety, provided clear and simple instructions, provided direction and encouragement regarding performance of ADLs, and maintained Q15 minute safety checks. Restraints/seclusion/emergency medication: N/A Justification of Continued Inpatient Treatment: Requires interruption of current crisis in a safe and therapeutic environment.
[2021-12-31] MEDS: nicotine 21mg patch - 24 hr TD SCH (07:34)
[2021-12-31] MEDS: OLANZAPINE 5 MG TABLET PO SCH ×3 (07:34→21:00)
[2021-12-31] MEDS: methadone 10mg tablet PO SCH (07:35)
[2021-12-31] MEDS: lisinopril 10 MG tablet PO SCH (07:36)
[2021-12-31] MEDS: ESCITALOPRAM OXALATE 5 MG TABLET PO SCH (07:36)
[2021-12-31] MEDS: NICOTINE POLACRILEX 2 MG LOZENGE BC PRN ×3 (07:46→16:52)
[2021-12-31 08:00] VITALS: BP 103/70
[2021-12-31] MEDS: hydrOXYzine 25 MG tablet PO PRN (11:06)
[2021-12-31] MEDS: LORazepam 1 MG tablet PO PRN (17:07)
[2021-12-31] MEDS ORDERED: haloperidol 5mg tablet PO ONE (17:10)
[2021-12-31] MEDS ORDERED: diphenhydrAMINE 25mg capsule PO ONE (17:10)
--- NOTE | 2021-12-31 17:34 | NUR ---
Nursing Progress Note: Legal hold: 5250 Client on involuntary status for GD Report received from MARIA L Fulton with use of SBAR. Why they are here: Pt. brought in to [facility] by Fazal KIM after being called for going house to house attempting to enter. Assessment What has happened this shift: Patient is resting quietly in bed at the start of the shift. On LOS at the start of the shift which is D/Cd in the morning. No exit seeking behavior noted at this time. Cooperative with 1:1 assessment and medications. Requests PRN Atarax for anxiety. Patient is then noted on the phone and becomes agitated and yelling in his room. Once off the phone patient states, I just need someone to talk to. Staff offers therapeutic listening and the patient talks about issues with his personal relationships and living situation. In the late afternoon the patient become agitated and requests PRN Ativan. Provider gives orders for x1 haldol/ Benadryl which the patient takes without issue. S/I, H/I: Denies A/VH: Denies. Sleep: None noted this shift ADL's: Independent Group attendance: No Were meds taken: Yes Any med S/E: None observed or reported. Mental Status Exam Appearance: Short man, clean, neat wearing green unit scrubs. Eye contact: Fair Behavior: Cooperative Speech: Clear, normal rate/ volume Mood: Really happy. Mood is labile. Affect: Congruent Thought process: Linear, circumstantial Thought Content: Perseveration on discharge. Concerned about living situation and personal relationships. Cognition: A&O x3 Insight: Fair Judgment: Fair Interventions PRN's used: Atarax, nicotine lozenge. Therapeutic interventions: Maintained a safe and supportive environment, ensured contract for safety, provided clear and simple instructions, provided direction and encouragement regarding performance of ADLs, and maintained Q15 minute safety checks. Restraints/seclusion/emergency medication: N/A Justification of Continued Inpatient Treatment: Requires interruption of current crisis in a safe and therapeutic environment.
[2021-12-31 19:00] VITALS: BP 115/69
[2021-12-31] MEDS: mirtazapine 15mg tablet PO SCH (21:00)
--- NOTE | 2022-01-01 03:05 | NUR ---
Nursing Progress Note: Huan Legal hold: 5250 Client on involuntary status for GD Report received from MARIA L Fulton with use of SBAR. Why they are here: Pt. brought in to [facility] by Fazal KIM after being called for going house to house attempting to enter. Assessment What has happened this shift: Pt has been sleeping hard first part of this shift. Unable to safely awaken pt for 2100 med pass, ever since Haldol/Benadryl/Ativan administered dayshift. VS stable. S/I, H/I: Denies A/VH: Denies. Sleep: Majority of shift. ADL's: Independent Group attendance: No Were meds taken: No (see note above) Pt has been asleep Any med S/E: None observed or reported. Mental Status Exam Appearance: in bed asleep, green scrubs Eye contact: Fair Behavior: Cooperative Speech: Clear, normal rate/ volume Mood: labile. Affect: Congruent Thought process: Linear, circumstantial Thought Content: Perseveration on discharge. Cognition: A&O x3 Insight: Fair Judgment: Fair Interventions PRN's used: None Therapeutic interventions: Maintained a safe and supportive environment, ensured contract for safety, provided clear and simple instructions, provided direction and encouragement regarding performance of ADLs, and maintained Q15 minute safety checks. Restraints/seclusion/emergency medication: N/A Justification of Continued Inpatient Treatment: Requires interruption of current crisis in a safe and therapeutic environment.
[2022-01-01] MEDS: NICOTINE POLACRILEX 2 MG LOZENGE BC PRN ×3 (06:56→16:11)
[2022-01-01] MEDS: nicotine 21mg patch - 24 hr TD SCH (07:17)
[2022-01-01] MEDS: methadone 10mg tablet PO SCH (07:18)
[2022-01-01] MEDS: OLANZAPINE 5 MG TABLET PO SCH ×3 (07:18→21:21)
[2022-01-01] MEDS: ESCITALOPRAM OXALATE 5 MG TABLET PO SCH (07:18)
[2022-01-01] MEDS: lisinopril 10 MG tablet PO SCH (07:35)
[2022-01-01 08:00] VITALS: BP 112/89
[2022-01-01] MEDS: LORazepam 1 MG tablet PO PRN ×2 (09:33→15:57)
[2022-01-01] MEDS: hydrOXYzine 25 MG tablet PO PRN (15:53)
[2022-01-01] MEDS ORDERED: diphenhydrAMINE 50 mg/ml inj ONE (16:21)
[2022-01-01] MEDS ORDERED: haloperidol lactate 5mg/ml inj ONE (16:21)
[2022-01-01] MEDS ORDERED: LORazepam 2 mg/ml vial ONE (16:22)
--- NOTE | 2022-01-01 17:27 | NUR ---
Nursing Progress Note: Legal hold: 5250 Client on involuntary status for GD Report received from MARIA L Wetzel with use of SBAR. Why they are here: Pt. brought in to [facility] by Fazal KIM after being called for going house to house attempting to enter. Assessment What has happened this shift: Patient is awake in his room at the start of the shift. Cooperative with 1:1 assessment and medications. Eats meals in the community room and interacts appropriately with staff and peers. Watches TV in the rec room and socializes with select peers. In the early afternoon the patient has increased anxiety. PRN Ativan and Atarax is given. Patient becomes agitated when talking to the provider related to not being able to discharge. Yelling and swearing in his room. Hitting the window. Security is called and the provider gives a new order for Benadryl/ Haldol/ Ativan IM. Patient takes IM without issue and becomes less agitated. S/I, H/I: Denies A/VH: Denies Sleep: 1 hour in the morning, naps in the afternoon ADL's: Independent Group attendance: No Were meds taken: Yes Any med S/E: None observed or reported. Mental Status Exam Appearance: Short man, clean, neat wearing green unit scrubs. Eye contact: Good Behavior: Cooperative, labile, agitated Speech: Clear, normal rate/ volume Mood: Labile Affect: Congruent Thought process: Linear, circumstantial Thought Content: Wants to discharge Cognition: A&O x3 Insight: Fair Judgment: Fair Interventions PRN's used: Atarax, Ativan, nicotine lozenge, Tylenol Therapeutic interventions: Maintained a safe and supportive environment, ensured contract for safety, provided clear and simple instructions, provided direction and encouragement regarding performance of ADLs, and maintained Q15 minute safety checks. Restraints/seclusion/emergency medication: Benadryl/ Haldol/ Ativan IM Justification of Continued Inpatient Treatment: Requires interruption of current crisis in a safe and therapeutic environment.
[2022-01-01 19:00] VITALS: BP 109/72
[2022-01-01] MEDS ORDERED: divalproex 250mg tablet, delayed-release PO SCH (21:00)
[2022-01-01] MEDS: divalproex sod 250mg ER (24-hour) tablet PO SCH (21:22)
[2022-01-01] MEDS: mirtazapine 15mg tablet PO SCH (21:23)
--- NOTE | 2022-01-02 00:48 | NUR ---
Nursing Progress Note: Legal hold: 5250 Client on involuntary status for GD Report received from MARY CARMEN Ng with use of SBAR. Why they are here: Pt. brought in to [facility] by Fazal KIM after being called for going house to house attempting to enter. Assessment What has happened this shift: Following shift change this patient was sleeping. Patient received sedation on the day shift. Patient later awoke and was medication compliant. He did partake of snacks. Patient presents with a flat affect and some depression. Patient is focused on departing the Behavioral Health Unit. He is cooperative, polite, he denies S/I, H/I, or any hallucinations at this time. S/I, H/I: Denies. A/VH: Denies. Sleep: 1 hour in the morning, naps in the afternoon ADL's: Independent. Group attendance: No group on clinical resource nurse. Were meds taken: Yes, patient is medication compliant. Any med S/E: None observed or reported. Mental Status Exam Appearance: "WNL" Eye contact: Direct. Behavior: Cooperative and sleepy. Speech: Normal rate, rhythm, and tone. Mood: Depressed. Affect: Congruent with mood. Thought process: Linear. Thought Content: States he is tired and wants to sleep. Cognition: A&O x3. Insight: Fair. Judgment: Fair. Interventions PRN's used: Therapeutic interventions: Maintained a safe and supportive environment, ensured contract for safety, provided clear and simple instructions, provided direction and encouragement regarding performance of ADLs, and maintained Q15 minute safety checks. Restraints/seclusion/emergency medication: Benadryl/ Haldol/ Ativan IM Justification of Continued Inpatient Treatment: Requires interruption of current crisis in a safe and therapeutic environment.
[2022-01-02] MEDS: LORazepam 1 MG tablet PO PRN ×3 (06:44→20:55)
[2022-01-02] MEDS: NICOTINE POLACRILEX 2 MG LOZENGE BC PRN ×3 (06:44→17:37)
[2022-01-02 08:39] VITALS: BP 133/76
[2022-01-02] MEDS: nicotine 21mg patch - 24 hr TD SCH (08:59)
[2022-01-02] MEDS: ESCITALOPRAM OXALATE 5 MG TABLET PO SCH (08:59)
[2022-01-02] MEDS: methadone 10mg tablet PO SCH (09:00)
[2022-01-02] MEDS: OLANZAPINE 5 MG TABLET PO SCH ×3 (09:01→21:00)
[2022-01-02] MEDS: lisinopril 10 MG tablet PO SCH (09:01)
[2022-01-02] MEDS ORDERED: haloperidol 5mg tablet PO ONE (10:05)
[2022-01-02] MEDS ORDERED: LORazepam 2 mg/ml vial ONE (12:41)
[2022-01-02] MEDS ORDERED: haloperidol lactate 5mg/ml inj ONE (12:41)
[2022-01-02] MEDS ORDERED: diphenhydrAMINE 50 mg/ml inj ONE (12:42)
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
[2022-01-02] MEDS: hydrOXYzine 25 MG tablet PO PRN (18:22)
[2022-01-02 20:20] VITALS: BP 120/87
[2022-01-02] MEDS: mirtazapine 15mg tablet PO SCH (21:01)
[2022-01-02] MEDS: divalproex sod 250mg ER (24-hour) tablet PO SCH (21:01)
--- NOTE | 2022-01-03 00:29 | NUR ---
Nursing Progress Note: Legal hold: 5250 Client on involuntary status for GD Report received from Lele LISA with use of SBAR. Why they are here: Pt. brought in to [facility] by Fazal KIM after being called for going house to house attempting to enter. Assessment What has happened this shift: Pt up in halls at start of shift. Said "I need to go to the ER because I have had this pain in my stomach all day" Pt exhibited very dramatic pain symptoms at times like doubling over and yelling. But shortly after would be running in the tristan, throwing a ball, or walking while squatting and swinging his arms. Given Maalox. Pt no longer c/o "stomach pain". Pt fell asleep had to be awakened for HS meds he was cooperative with meds went back to sleep sleeping at this time. S/I, H/I: Denies A/VH: Denies Sleep: Sleeping at this time ADL's: Independent Group attendance: NA Were meds taken: Yes Any med S/E: None observed or reported. Mental Status Exam Appearance: Short man, clean, neat wearing green unit scrubs. Eye contact: Good Behavior: Cooperative, labile, agitated Speech: Clear, normal rate/ volume Mood: Labile Affect: Congruent Thought process: Tangential , circumstantial Thought Content: wanted to go to ER Cognition: A&O x3 Insight: Poor Judgment: Poor Interventions PRN's used: Ativan Therapeutic interventions: Maintained a safe and supportive environment, ensured contract for safety, provided clear and simple instructions, provided direction and encouragement regarding performance of ADLs, and maintained Q15 minute safety checks. Restraints/seclusion/emergency medication: NA Justification of Continued Inpatient Treatment: Requires interruption of current crisis in a safe and therapeutic environment.
[2022-01-03] MEDS: haloperidol 5mg tablet PO SCH ×2 (07:47→20:11)
[2022-01-03] MEDS: ESCITALOPRAM OXALATE 5 MG TABLET PO SCH (07:47)
[2022-01-03] MEDS: OLANZAPINE 5 MG TABLET PO SCH ×3 (07:47→20:11)
[2022-01-03] MEDS: methadone 10mg tablet PO SCH (07:48)
[2022-01-03] MEDS: lisinopril 10 MG tablet PO SCH (07:48)
[2022-01-03] MEDS: nicotine 21mg patch - 24 hr TD SCH (07:49)
[2022-01-03 08:53] VITALS: BP 112/84
[2022-01-03] MEDS: NICOTINE POLACRILEX 2 MG LOZENGE BC PRN ×5 (10:22→19:52)
[2022-01-03] MEDS: hydrOXYzine 25 MG tablet PO PRN (11:35)
[2022-01-03] MEDS: mag hydrox/Alum hydrox/simeth 30ml oral suspension PO PRN (13:39)
--- NOTE | 2022-01-03 13:40 | NUR ---
Pt. c/o upper quadrant left sided stomach pain, PRN Maalox was administered. Will endorse to pt's RN and continue to monitor.
--- NOTE | 2022-01-03 14:19 | NUR ---
Nursing Progress Note: Legal hold: 5250 Client on involuntary status for GD Report received from MARIA L Tamez with use of SBAR. Why they are here: Pt. brought in to [facility] by Fazal KIM after being called for going house to house attempting to enter. Assessment What has happened this shift: Patient was asleep at change of shift and up for breakfast. Patient appeared happy today and smiling. Patient has had a really good day as of this writing. Patient was exercising in his room and his peer was exercising in front of his room in the tristan. patient was doing push ups and stretches. Patient went to group and assisted one of the Techs. Patient denies suicidal/homicidal ideation. When RN was out of the area patient started c/o Left upper abdominal pain. RN believed it was a muscle pull but patient stated he had the pain x 2 weeks and much worse today. RN paged the Hospitalist who ordered blood work on patient. Patient was a little dramatic on the floor when he was in pain telling peers "I'm going to be alright!" S/I, H/I: Denies A/VH: Denies Sleep: laid down in the afternoon ADL's: Independent Group attendance: Yes to morning group Were meds taken: Yes Any med S/E: None observed or reported. Mental Status Exam Appearance: Small stature, clean, neat wearing green scrub pants and a martinez sweatshirt. Eye contact: Good Behavior: Cooperative Speech: Clear, normal rate/ volume Mood: Plesant Affect: Flat Thought process: Linear, circumstantial Thought Content: Wants to discharge Cognition: A&O x3 Insight: Fair Judgment: Fair Interventions PRN's used: Atarax, Nicotine Lozenge Therapeutic interventions: Maintained a safe and supportive environment, ensured contract for safety, provided clear and simple instructions, provided direction and encouragement regarding performance of ADLs, and maintained Q15 minute safety checks. Restraints/seclusion/emergency medication: None today Justification of Continued Inpatient Treatment: Requires interruption of current crisis in a safe and therapeutic environment.
[2022-01-03] MEDS ORDERED: LORazepam 2 mg/ml vial ONE (15:46)
[2022-01-03] MEDS ORDERED: haloperidol lactate 5mg/ml inj ONE (15:47)
[2022-01-03] MEDS ORDERED: diphenhydrAMINE 50 mg/ml inj ONE (15:48)
--- NOTE | 2022-01-03 15:55 | NUR ---
Patient given IM Haldol 10 mg, Ativan 2 mg, Benadryl 50 mg. Patient found out that some people won their court date and asked if he was going home. He wasn't leaving and did not go to court and became upset.
[2022-01-03 18:10] LABS: BASOPHILS # (AUTO) 0.1 X10'3 (0-0.2); BASOPHILS % (AUTO) 1.1 % (0-1); EOSINOPHILS # (AUTO) 0.2 X10'3 (0-0.9); EOSINOPHILS % (AUTO) 2.4 % (0-6); HEMATOCRIT 37.2 % (42.0-52.0); LYMPHOCYTES # (AUTO) 2.5 X10'3 (1.1-4.8); LYMPHOCYTES % (AUTO) 36.1 % (21-51); MEAN CORPUSCULAR HEMOGLOBIN 30.3 PG (27.0-31.0); MEAN CORPUSCULAR HGB CONC 34.8 g/dL (33.0-36.5); MEAN CORPUSCULAR VOLUME 87.2 FL (78-98); MEAN PLATELET VOLUME 7.2 FL (7.4-10.4); MONOCYTES # (AUTO) 0.6 X10'3 (0-0.9); MONOCYTES % (AUTO) 9.1 % (2-12); NEUTROPHILS # (AUTO) 3.6 X10'3 (1.8-7.7); NEUTROPHILS % (AUTO) 51.3 % (42-75); PLATELET COUNT 343 X10'3 (140-440); RED BLOOD COUNT 4.27 X10'6 (4.70-6.10); RED CELL DISTRIBUTION WIDTH 12.6 % (11.5-14.5)
[2022-01-03 18:23] LABS: ALANINE AMINOTRANSFERASE 80 U/L (12-78); ALBUMIN 3.3 G/DL (3.4-5.0); ALBUMIN/GLOBULIN RATIO 1.1 (1.1-1.5); ALKALINE PHOSPHATASE 81 IU/L (46-116); ANION GAP 10 (8-16); ASPARTATE AMINO TRANSFERASE 63 U/L (10-37); BILIRUBIN,TOTAL 0.3 MG/DL (0.1-1.0); BLOOD UREA NITROGEN 17 MG/DL (7-18); BUN/CREATININE RATIO 19.1 (5.4-32.0); CALCIUM 8.9 MG/DL (8.5-10.1); CHLORIDE 104 MMOL/L (99-107); CREATININE 0.89 MG/DL (0.60-1.10); GLUCOSE 99 MG/DL (70-104); POTASSIUM 4.3 MMOL/L (3.5-5.1); SODIUM 142 MMOL/L (135-145); TOTAL CARBON DIOXIDE 28.5 MMOL/L (24-32); TOTAL PROTEIN 6.4 G/DL (6.4-8.2); eGFR > 90 ML/MIN
[2022-01-03 20:00] VITALS: BP 118/70
[2022-01-03] MEDS: mirtazapine 15mg tablet PO SCH (20:11)
[2022-01-03] MEDS: divalproex sod 250mg ER (24-hour) tablet PO SCH (20:12)
--- NOTE | 2022-01-04 01:45 | NUR ---
Nursing Progress Note: Isabel Legal hold: 5250 Client on involuntary status for GD Report received from MARIA L Royal with use of SBAR. Why they are here: Pt. brought in to [facility] by Fazal KIM after being called for going house to house attempting to enter. Assessment What has happened this shift: shift: Following shift change this patient was sleeping. Patient received sedation on the day shift. Patient woke up at around 1945 and stated he was starving. Let the patient know snack time was in 15 minutes. Patient presents with a flat affect and some depression. Patient is focused on departing the [facility]al [facility]. He is cooperative, polite, he denies S/I, H/I, or any hallucinations at this time. S/I, H/I: Denies A/VH: Denies Sleep: ADL's: Independent Group attendance: Were meds taken: Yes Any med S/E: None observed or reported. Mental Status Exam Appearance: Small stature, clean, neat wearing green scrub pants and a martinez sweatshirt. Eye contact: Good Behavior: Cooperative Speech: Clear, normal rate/ volume Mood: Depressed Affect: Flat Thought process: Linear, circumstantial Thought Content: Wants to discharge Cognition: A&O x3 Insight: Fair Judgment: Fair Interventions PRN's used: Atarax, Nicotine Lozenge Therapeutic interventions: Maintained a safe and supportive environment, ensured contract for safety, provided clear and simple instructions, provided direction and encouragement regarding performance of ADLs, and maintained Q15 minute safety checks. Restraints/seclusion/emergency medication: NA Justification of Continued Inpatient Treatment: Requires interruption of current crisis in a safe and therapeutic environment.
[2022-01-04 08:00] VITALS: BP 121/69
[2022-01-04] MEDS: OLANZAPINE 5 MG TABLET PO SCH ×2 (08:55→20:03)
[2022-01-04] MEDS: lisinopril 10 MG tablet PO SCH (08:56)
[2022-01-04] MEDS: ESCITALOPRAM OXALATE 5 MG TABLET PO SCH (08:56)
[2022-01-04] MEDS: haloperidol 5mg tablet PO SCH ×2 (08:56→20:03)
[2022-01-04] MEDS: nicotine 21mg patch - 24 hr TD SCH (08:57)
[2022-01-04] MEDS: methadone 10mg tablet PO SCH (09:06)
[2022-01-04] MEDS: NICOTINE POLACRILEX 2 MG LOZENGE BC PRN ×3 (09:12→17:58)
--- NOTE | 2022-01-04 09:17 | NUR ---
Pt. attended group today. Today's group was about the different communications styles i.e passive, aggressive and assertive. We discussed what the characteristics of each style was. We then discussed where they saw themselves at now and where they would like to be with their communication style. Pt engaged in the group today. He paired up with a staff member to do the listening activity. He was able to share and to listen and to share what he learned about his partner with the class, He was unable to sit through the whole group and left early. His overall demeanor was pleasant but restless. Li Treadwell, GUM [employer]ER
[2022-01-04] MEDS: LORazepam 1 MG tablet PO PRN ×2 (13:55→22:39)
[2022-01-04] MEDS: hydrOXYzine 25 MG tablet PO PRN (15:28)
[2022-01-04] MEDS ORDERED: mag hydrox/Alum hydrox/simeth 30ml oral suspension PO ONE (15:35)
[2022-01-04] MEDS: calcium carbonate 500mg chew tablet PO SCH (16:44)
--- NOTE | 2022-01-04 17:45 | NUR ---
Nursing Progress Note: Legal hold: 5250 Client on involuntary status for GD Report received from MARIA L Tamez with use of SBAR. Why they are here: Pt. brought in to [facility] by Fazal KIM after being called for going house to house attempting to enter. Assessment What has happened this shift: Patient was asleep at change of shift and up for breakfast. Patient appeared happy today and smiling. Patient has had a really good day as of this writing. Patient was exercising in his room and his peer was exercising in front of his room in the tristan. patient was doing push ups and stretches. Patient went to group and assisted one of the Techs. Patient denies suicidal/homicidal ideation. When RN was out of the area patient started c/o Left upper abdominal pain. RN believed it was a muscle pull but patient stated he had the pain x 2 weeks and much worse today. RN paged the Hospitalist who ordered blood work on patient. Patient was a little dramatic on the floor when he was in pain telling peers "I'm going to be alright!" S/I, H/I: Denies A/VH: Denies Sleep: laid down in the afternoon ADL's: Independent Group attendance: Yes to morning group Were meds taken: Yes Any med S/E: None observed or reported. Mental Status Exam Appearance: Small stature, clean, neat wearing green scrub pants and a martinez sweatshirt. Eye contact: Good Behavior: Cooperative Speech: Clear, normal rate/ volume Mood: Irritable at times Affect: Flat Thought process: Linear, circumstantial Thought Content: Wants to discharge Cognition: A&O x3 Insight: Fair Judgment: Fair Interventions PRN's used: Atarax, Ativan, Nicotine Lozenge Therapeutic interventions: Maintained a safe and supportive environment, ensured contract for safety, provided clear and simple instructions, provided direction and encouragement regarding performance of ADLs, and maintained Q15 minute safety checks. Restraints/seclusion/emergency medication: None today Justification of Continued Inpatient Treatment: Requires interruption of current crisis in a safe and therapeutic environment.
--- NOTE | 2022-01-04 17:47 | NUR ---
Nursing Progress Note: Legal hold: 5250 Client on involuntary status for GD Report received from MARIA L Salas with use of SBAR. Why they are here: Pt. brought in to [facility] by Fazal KIM after being called for going house to house attempting to enter. Assessment What has happened this shift: Patient was asleep at change of shift and up for breakfast. Patient appeared happy today and smiling. Patient was again complaining about his Left upper abdominal pain. RN again paged the Hospitalist. Patient was happy a doctor was going to put hands on him. When Dr Torres came to see patient in his room, patient had a bag of chips. Dr Torres believes patient has GERD. Patient has not needed an injection today. S/I, H/I: Denies A/VH: Denies Sleep: laid down in the morning and the afternoon ADL's: Independent Group attendance: no Were meds taken: Yes Any med S/E: None observed or reported. Mental Status Exam Appearance: Small stature, clean, neat wearing green scrub pants and a martinez sweatshirt. Eye contact: Good Behavior: Cooperative Speech: Clear, normal rate/ volume Mood: Irritable at times Affect: Flat Thought process: Linear, circumstantial Thought Content: Wants to discharge Cognition: A&O x3 Insight: Fair Judgment: Fair Interventions PRN's used: Atarax, Ativan, Nicotine Lozenge Therapeutic interventions: Maintained a safe and supportive environment, ensured contract for safety, provided clear and simple instructions, provided direction and encouragement regarding performance of ADLs, and maintained Q15 minute safety checks. Restraints/seclusion/emergency medication: None today Justification of Continued Inpatient Treatment: Requires interruption of current crisis in a safe and therapeutic environment.
[2022-01-04] MEDS: mag hydrox/Alum hydrox/simeth 30ml oral suspension PO PRN (18:55)
[2022-01-04 19:36] VITALS: BP 116/73
[2022-01-04] MEDS: famotidine 20mg tablet PO SCH (20:03)
[2022-01-04] MEDS: divalproex sod 250mg ER (24-hour) tablet PO SCH (20:04)
[2022-01-04] MEDS: mirtazapine 15mg tablet PO SCH (20:04)
--- NOTE | 2022-01-05 00:50 | NUR ---
Nursing Progress Note: Isabel Legal hold: 5250 Client on involuntary status for GD Report received from MARIA L Royal with use of SBAR. Why they are here: Pt. brought in to [facility] by Fazal KIM after being called for going house to house attempting to enter. Assessment What has happened this shift: Patient was lying in bed resting at change of shift. Pt states he is doing OK and denies depression and anxiety. Pt was polite with this RN during assessment, has no needs at this time. Pt described his mood this evening as sleepy. Pt up for snacks and took all HS medications without issue. S/I, H/I: Denies A/VH: Denies Sleep: ADL's: Independent Group attendance: no Were meds taken: Yes Any med S/E: None observed or reported. Mental Status Exam Appearance: Small stature, clean, neat wearing green scrub pants and a martinez sweatshirt. Eye contact: Good Behavior: Cooperative Speech: Clear, normal rate/ volume Mood: Depressed Affect: Flat Thought process: Linear, circumstantial Thought Content: Wants to discharge Cognition: A&O x3 Insight: Fair Judgment: Fair Interventions PRN's used: Ativan Therapeutic interventions: Maintained a safe and supportive environment, ensured contract for safety, provided clear and simple instructions, provided direction and encouragement regarding performance of ADLs, and maintained Q15 minute safety checks. Restraints/seclusion/emergency medication: None today Justification of Continued Inpatient Treatment: Requires interruption of current crisis in a safe and therapeutic environment.
[2022-01-05] MEDS: ESCITALOPRAM OXALATE 5 MG TABLET PO SCH (07:15)
[2022-01-05] MEDS: OLANZAPINE 5 MG TABLET PO SCH (07:15)
[2022-01-05] MEDS: haloperidol 5mg tablet PO SCH ×2 (07:15→21:06)
[2022-01-05] MEDS: lisinopril 10 MG tablet PO SCH (07:15)
[2022-01-05] MEDS: methadone 10mg tablet PO SCH (07:16)
[2022-01-05] MEDS: nicotine 21mg patch - 24 hr TD SCH (07:19)
[2022-01-05] MEDS: NICOTINE POLACRILEX 2 MG LOZENGE BC PRN ×4 (07:19→18:20)
[2022-01-05 08:00] VITALS: BP 116/68
[2022-01-05] MEDS: calcium carbonate 500mg chew tablet PO SCH ×3 (08:32→18:17)
--- NOTE | 2022-01-05 08:42 | NUR ---
Huan's girlfriend, Ronit (ph# [phone]), called for an update. Informed her that Huan had a good day yesterday and [place]. Ronit reported the car is her car, it is registered in her name, and she is not going to give him the car to live in. Stapler Hand will pass this along to MARA Murdock. DELIA Miller
--- NOTE | 2022-01-05 12:57 | NUR ---
Reassessment: Pt continues eating well with mostly 100% PO intake on regular diet meeting estimated nutrient needs. [facility] 01/04, receiving PRN bowel care. No nutrition intervention implemented at this time. Will continue to follow. Recommendations: 1. Continue regular diet 2. Bowel care PRN 3. Weekly scaled wts Addendum: 01/05/22 at [address] Amended: Links added.
[2022-01-05] MEDS: LORazepam 1 MG tablet PO PRN ×2 (14:58→22:11)
[2022-01-05] MEDS: mag hydrox/Alum hydrox/simeth 30ml oral suspension PO PRN (15:23)
--- NOTE | 2022-01-05 17:56 | NUR ---
Nursing Progress Note: Legal hold: 5250 Client on involuntary status for GD Report received from MARIA L Salas with use of SBAR. Why they are here: Pt. brought [facility] by Fazal KIM after being called for going house to house attempting to enter. Assessment What has happened this shift: RN received pt. asleep in bed at start of shift. Pt. awoke for breakfast and took all medications. Pt. went back to sleep. Pt. awoke for AM snack but c/o pain in left upper quadrant of his abdomen that comes after eating. Pt. given his tums with moderate effect. In afternoon pt. requested something more for his indigestion and given Maalox with good effect. Pt. given Ativan 2mg po prn for anxiety with good effect. Pt. napped most of the afternoon. Waking up for snack. 1:1 done at bedside. Pt. denies all psych symptoms but gives minimal information during interview. S/I, H/I: Denies A/VH: Denies Sleep: Pt. napped most of the day. ADL's: Independent Group attendance: No Were meds taken: Yes Any med S/E: None observed or reported. Mental Status Exam Appearance: Disheveled, wearing green scrub pants and sweater. Eye contact: WNL Behavior: Cooperative Speech: WNL Mood: Euthymic with some anxiety Affect: Flat Thought process: Linear, circumstantial Thought Content: Circumstantial Cognition: A&O x3 Insight: Fair Judgment: Fair Interventions PRN's used: Ativan, Maalox x1 Therapeutic interventions: Maintained a safe and supportive environment, ensured contract for safety, provided clear and simple instructions, provided direction and encouragement regarding performance of ADLs, and maintained Q15 minute safety checks. Restraints/seclusion/emergency medication: None today Justification of Continued Inpatient Treatment: Requires interruption of current crisis in a safe and therapeutic environment.
[2022-01-05 19:12] VITALS: BP 110/73
[2022-01-05] MEDS: mirtazapine 15mg tablet PO SCH (21:05)
[2022-01-05] MEDS: famotidine 20mg tablet PO SCH (21:06)
[2022-01-05] MEDS: divalproex sod 250mg ER (24-hour) tablet PO SCH (21:06)
[2022-01-05] MEDS: hydrOXYzine 25 MG tablet PO PRN (22:12)
--- NOTE | 2022-01-06 03:32 | NUR ---
Nursing Progress Note: Isabel Legal hold: 5250 Client on involuntary status for GD Report received from MARIA L Ng with use of SBAR. Why they are here: Pt. brought in to [facility] by Fazal KIM after being called for going house to house attempting to enter. Assessment What has happened this shift: Patient was found sleeping in bed at beginning of shift. Patient continued to sleep and isolate in room until after med pass. Patient took all scheduled night medications and then an hour later came out asking for something to help him sleep. Patient became very agitated when he found out he had been switched from 2 Ativan prn to 1 Ativan prn. Patient began yelling asking why the doctor had decided to switch him. Patient was given prn Ativan and prn Atrax to help him calm down and go to sleep. After receiving medications patient went to bed and had no more issues the rest of the night. S/I, H/I: Denies A/VH: Denies Sleep: See sleep assessment ADL's: Independent Group attendance: no Were meds taken: Yes Any med S/E: None observed or reported. Mental Status Exam Appearance: Small stature, clean, neat wearing green scrub pants and a martinez sweatshirt. Eye contact: Good Behavior: Cooperative, agitated Speech: Clear, normal rate/ volume Mood: Depressed Affect: Flat Thought process: Linear, circumstantial Thought Content: Wants to discharge and medications Cognition: A&O x3 Insight: Fair Judgment: Fair Interventions PRN's used: Ativan, Atrax Therapeutic interventions: Maintained a safe and supportive environment, ensured contract for safety, provided clear and simple instructions, provided direction and encouragement regarding performance of ADLs, and maintained Q15 minute safety checks. Restraints/seclusion/emergency medication: None today Justification of Continued Inpatient Treatment: Requires interruption of current crisis in a safe and therapeutic environment.
[2022-01-06 07:53] VITALS: BP 131/78
[2022-01-06] MEDS ORDERED: OLANZAPINE 5 MG TABLET PO SCH (08:00)
[2022-01-06] MEDS: calcium carbonate 500mg chew tablet PO SCH ×3 (08:02→17:55)
[2022-01-06] MEDS: methadone 10mg tablet PO SCH (08:02)
[2022-01-06] MEDS: haloperidol 5mg tablet PO SCH ×2 (08:02→20:00)
[2022-01-06] MEDS: lisinopril 10 MG tablet PO SCH (08:03)
[2022-01-06] MEDS: pantoprazole 40mg Tablet.DR PO SCH (08:03)
[2022-01-06] MEDS: ESCITALOPRAM OXALATE 5 MG TABLET PO SCH (08:04)
[2022-01-06] MEDS: nicotine 21mg patch - 24 hr TD SCH (08:06)
[2022-01-06] MEDS: NICOTINE POLACRILEX 2 MG LOZENGE BC PRN ×4 (08:15→16:15)
[2022-01-06] MEDS: hydrOXYzine 25 MG tablet PO PRN ×2 (12:26→20:01)
[2022-01-06] MEDS: LORazepam 1 MG tablet PO PRN (13:37)
[2022-01-06] MEDS: mag hydrox/Alum hydrox/simeth 30ml oral suspension PO PRN ×2 (13:50→17:57)
[2022-01-06] MEDS ORDERED: LORazepam 1 MG tablet PO PRN (15:25)
[2022-01-06] MEDS ORDERED: quetiapine 100mg tablet PO PRN (15:25)
[2022-01-06] MEDS ORDERED: MIRT45TA79 PO ×2 (15:38)
[2022-01-06] MEDS ORDERED: LISI10TA27 PO ×2 (15:38)
[2022-01-06] MEDS ORDERED: DIVA500T9 PO ×2 (15:38)
[2022-01-06] MEDS ORDERED: HALO10TA13 PO ×2 (15:38)
[2022-01-06] MEDS ORDERED: NICO-687 TD ×2 (15:38)
[2022-01-06] MEDS ORDERED: PANT40TA54 PO ×2 (15:38)
[2022-01-06] MEDS ORDERED: NICO-907 BC ×2 (15:38)
[2022-01-06] MEDS ORDERED: HYDR-3686 PO ×2 (15:38)
[2022-01-06] MEDS ORDERED: QUET100T34 PO ×2 (15:38)
[2022-01-06] MEDS ORDERED: ESCI-8 PO ×2 (15:38)
--- NOTE | 2022-01-06 17:40 | NUR ---
Nursing Progress Note: Legal hold: 5250 Client on involuntary status for GD Report received from MARIA L Salas with use of SBAR. Why they are here: Pt. brought in to [facility] by Fazal KIM after being called for going house to house attempting to enter. Assessment What has happened this shift: RN received pt. asleep in bed at start of shift. Pt. awoke for breakfast and took all medications. Pt. went back to sleep. Pt. awoke for AM snack and then went back to sleep. After breakfast pt. c/o of severe left upper quadrant pain in abdomen and RN paged hospitalist. Pt. given Maalox and went back to sleep. Pt. c/o of anxiety and given Ativan 1mg po with good effect. 1:1 done at bedside, pt. denies all psych symptoms and states he will be discharged tomorrow. Pt. continues to have some impulsivity, cursing loudly at times and needs redirection S/I, H/I: Denies A/VH: Denies Sleep: Pt. napped intermittently throughout the day. ADL's: Independent Group attendance: No Were meds taken: Yes Any med S/E: None observed or reported. Mental Status Exam Appearance: Disheveled, wearing green scrub pants and sweater. Eye contact: WNL Behavior: Cooperative. Impulsive at times. Speech: WNL Mood: Euthymic with some anxiety Affect: Flat Thought process: Linear. Thought Content: Getting needs met and discharge. Cognition: A&O x3 (not to circumstance) Insight: Fair Judgment: Fair Interventions PRN's used: Ativan, Maalox x1 Therapeutic interventions: Maintained a safe and supportive environment, ensured contract for safety, provided clear and simple instructions, provided direction and encouragement regarding performance of ADLs, and maintained Q15 minute safety checks. Restraints/seclusion/emergency medication: None today Justification of Continued Inpatient Treatment: Requires interruption of current crisis in a safe and therapeutic environment.
[2022-01-06] MEDS: divalproex sod 250mg ER (24-hour) tablet PO SCH (20:00)
[2022-01-06] MEDS: mirtazapine 15mg tablet PO SCH (20:00)
[2022-01-06] MEDS: famotidine 20mg tablet PO SCH (20:00)
[2022-01-06 20:22] VITALS: BP 119/77
--- NOTE | 2022-01-07 01:59 | NUR ---
Nursing Progress Note: Isabel Legal hold: 5250 Client on involuntary status for GD Report received from MARIA L Ng with use of SBAR. Why they are here: Pt. brought in to [facility] by Fazal KIM after being called for going house to house attempting to enter. Assessment What has happened this shift: Patient was observed playing a game with other patients in hallway at change of shift. Patient than started calling family members to see who could pick him up tomorrow. Patient began to yell and become very agitated due to him calling multiple family members and none of them being willing to come get him. Patient became even more frustrated when his sister who currently has his car kept hanging up on him and refused to return it. Nurse gave patient prn Ativan to help him calm down. Patient was later observed sitting in community room talking and playing games with other patients. Patient participated in snack and took a shower. Patient took all night medications including prn Atrax and nicotine lozenge. Patient later came and asked for prn Seroquel too help him sleep. S/I, H/I: Denies A/VH: Denies Sleep: See sleep assessment ADL's: Independent Group attendance: no Were meds taken: Yes Any med S/E: None observed or reported. Mental Status Exam Appearance: Small stature, clean, neat wearing green scrubs Eye contact: Good Behavior: Cooperative, agitated Speech: Clear, normal rate/ volume Mood: Depressed Affect: Flat Thought process: Linear, circumstantial Thought Content: Wants to discharge and medications Cognition: A&O x3 Insight: Fair Judgment: Fair Interventions PRN's used: Ativan, Atrax, nicotine lozenge, Seroquel Therapeutic interventions: Maintained a safe and supportive environment, ensured contract for safety, provided clear and simple instructions, provided direction and encouragement regarding performance of ADLs, and maintained Q15 minute safety checks. Restraints/seclusion/emergency medication: None today Justification of Continued Inpatient Treatment: Requires interruption of current crisis in a safe and therapeutic environment.
[2022-01-07 07:00] VITALS: BP 119/80
[2022-01-07] MEDS: ESCITALOPRAM OXALATE 5 MG TABLET PO SCH (07:16)
[2022-01-07 07:17] VITALS: BP_SYST 130
[2022-01-07] MEDS: pantoprazole 40mg Tablet.DR PO SCH (07:17)
[2022-01-07] MEDS: methadone 10mg tablet PO SCH (07:17)
[2022-01-07] MEDS: haloperidol 5mg tablet PO SCH (07:17)
[2022-01-07] MEDS: lisinopril 10 MG tablet PO SCH (07:17)
[2022-01-07] MEDS: nicotine 21mg patch - 24 hr TD SCH (07:21)
[2022-01-07] MEDS: calcium carbonate 500mg chew tablet PO SCH (08:03)
--- NOTE | 2022-01-07 08:10 | NUR ---
DISCHARGE NOTE: Pt. discharged to [facility]. Pt. refused taxi ride, stating, "I want to walk". Pt. discharged with all belongings and valuables, however, pt. decided to leave his belongings at the hospital because he could not walk with them. RN discouraged pt. from doing this but pt. states, "I will be back later". RN went over all discharge paperwork with pt., including medication list, f/u plan, and crisis phone numbers including 911. Pt. verbalized understanding and signed discharge paper work. Pt. is A&Ox3 and in no apparent distress. Pt. denies SI/HI, A/V hallucinations.
== END 2022-01-07 08:10 | disposition home or self-care (01) | DRG 751 ==
LOC: ER 20:24 → ADULT MH 12-25 18:30
PROVIDERS: ADMIT Psychiatry & Neurology Psychiatry; ATTEND Psychiatry & Neurology Psychiatry
DX: F33.3 Major depressive disorder, recurrent, severe with psychotic symptoms (principal); F29 Unspecified psychosis not due to a substance or known physiological condition; F11.20 Opioid dependence, uncomplicated; F15.10 Other stimulant abuse, uncomplicated; F43.10 Post-traumatic stress disorder, unspecified; F39 Unspecified mood [affective] disorder; Z20.822 Contact with and (suspected) exposure to COVID-19; F17.210 Nicotine dependence, cigarettes, uncomplicated; G89.4 Chronic pain syndrome; L82.1 Other seborrheic keratosis; F41.9 Anxiety disorder, unspecified; I10 Essential (primary) hypertension; R10.13 Epigastric pain; G47.00 Insomnia, unspecified; J45.909 Unspecified asthma, uncomplicated; Z79.899 Other long term (current) drug therapy; Z59.00 Homelessness unspecified; Z91.14 Patient's other noncompliance with medication regimen; Z71.51 Drug abuse counseling and surveillance of drug abuser; Z71.6 Tobacco abuse counseling; Z56.0 Unemployment, unspecified
CPT/HCPCS: 36415; 80053; 80305; 80320; 80329; 81003; 83036; 84443; 85025; 87081; 87635; 93005; 99285; C9803; J1200; J1630; J2060; J3490; Q0163; Q0177

== ENCOUNTER 2022-01-10 10:09 | Emergency (ER) | payer MEDICAID ==
[~2022-01-10] VITALS: Ht 162.6 cm; Wt 63.6 kg
[~2022-01-10 10:09] MED LIST changes: -BUPR1FIL3 SL; +DIVA500T9 PO; +ESCI-8 PO; +HALO10TA13 PO; +HYDR-3686 PO; +LISI10TA27 PO; +METH-806 PO; +MIRT45TA79 PO; -MIRT45TA83 PO; +NICO-687 TD; +NICO-907 BC; +PANT40TA54 PO; -PRAZ1CAP5 PO; +QUET100T34 PO
[2022-01-10 10:33] VITALS: BP 133/87
[2022-01-10] MEDS ORDERED: MIRT45TA79 PO (12:29)
[2022-01-10] MEDS ORDERED: ESCI-8 PO (12:29)
[2022-01-10] MEDS ORDERED: QUET-1 PO ×2 (12:29→13:05)
[2022-01-10] MEDS ORDERED: HALO10TA13 PO ×2 (12:29→13:05)
[2022-01-10] MEDS ORDERED: HYDR-3686 PO ×2 (12:29→13:05)
[2022-01-10] MEDS ORDERED: LISI10TA27 PO (12:29)
[2022-01-10] MEDS ORDERED: PANT-47 PO (12:29)
[2022-01-10] MEDS ORDERED: DIVA500T9 PO (12:29)
--- NOTE | 2022-01-10 12:33 | NUR ---
Med Rec Done by MARY CARMEN Nieves.
[2022-01-10] MEDS ORDERED: DIVA-81 PO (13:05)
== END 2022-01-10 13:31 | disposition home or self-care (01) ==
LOC: ER 10:09
DX: Z76.0 Encounter for issue of repeat prescription (principal); F20.9 Schizophrenia, unspecified; F15.10 Other stimulant abuse, uncomplicated; J45.909 Unspecified asthma, uncomplicated; F31.9 Bipolar disorder, unspecified; F12.90 Cannabis use, unspecified, uncomplicated; F11.90 Opioid use, unspecified, uncomplicated; Z79.899 Other long term (current) drug therapy
CPT/HCPCS: 99283

== ENCOUNTER 2022-01-24 20:23 | Emergency (ER) | payer MEDICAID ==
[~2022-01-24] VITALS: Ht 172.7 cm; Wt 50.2 kg
[~2022-01-24 20:23] MED LIST changes: +DIVA-81 PO; -NICO-687 TD; -NICO-907 BC; +PANT-47 PO; -PANT40TA54 PO; +QUET-1 PO; -QUET100T34 PO
[2022-01-24 21:49] VITALS: BP 119/62
[2022-01-24] MEDS ORDERED: acetaminophen 325mg tablet PO ONE (22:30)
== END 2022-01-24 23:34 | disposition home or self-care (01) ==
LOC: ER 20:25
DX: M25.571 Pain in right ankle and joints of right foot (principal); J45.909 Unspecified asthma, uncomplicated; F31.9 Bipolar disorder, unspecified; F12.10 Cannabis abuse, uncomplicated; F15.10 Other stimulant abuse, uncomplicated; F11.10 Opioid abuse, uncomplicated; Z79.899 Other long term (current) drug therapy; X58.XXXA Exposure to other specified factors, initial encounter; Y93.89 Activity, other specified; Y92.89 Other specified places as the place of occurrence of the external cause; Y99.8 Other external cause status
CPT/HCPCS: 73630; 99284

== ENCOUNTER 2022-01-31 05:30 | Emergency (ER) | payer MEDICAID ==
[~2022-01-31] VITALS: Ht 162.6 cm; Wt 63.6 kg
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
[2022-01-31] MEDS ORDERED: LORazepam 2 mg/ml vial IM ONE (07:45)
--- NOTE | 2022-01-31 08:25 | NUR ---
rad at bedside.
[2022-01-31] MEDS ORDERED: AZIT-83 PO (08:43)
--- NOTE | 2022-01-31 08:53 | NUR ---
UPON DISCHARGE, PT REPORTS HE IS ALLERGIC TO AZITHROMYCIN AND IS REQUESTING PENICILLIN. INFORMED PT THAT AZITHROMYCIN IS NOT LISTED AN ALLERGY IN HIS CHART. INFORMED PT THAT AZITHROMYCIN IS AN ANTIBIOTIC USED FOR URI'S.
[2022-01-31 08:55] VITALS: BP 150/96
== END 2022-01-31 08:57 | disposition home or self-care (01) ==
LOC: ER 05:32
DX: J06.9 Acute upper respiratory infection, unspecified (principal); R09.89 Other specified symptoms and signs involving the circulatory and respiratory systems; R05.9 Cough, unspecified; J45.909 Unspecified asthma, uncomplicated; F31.9 Bipolar disorder, unspecified; F17.200 Nicotine dependence, unspecified, uncomplicated; F12.90 Cannabis use, unspecified, uncomplicated; F15.90 Other stimulant use, unspecified, uncomplicated; F11.90 Opioid use, unspecified, uncomplicated; Z79.2 Long term (current) use of antibiotics; Z79.899 Other long term (current) drug therapy
CPT/HCPCS: 71045; 96372; 99283; J2060